=== PATIENT | male | born 1975 ===

== ENCOUNTER 2017-10-24 15:39 | Emergency (ER) | payer OTHER ==
[2017-10-24 15:53] VITALS: BP 138/80; PULSE 68; RESP 20; TEMP 98.5; O2SAT 99
[2017-10-24] MEDS ORDERED: Sodium Chloride 0.9% 1,000 ML IV STA (16:40)
[2017-10-24] MEDS ORDERED: Iohexol 240 (50 ml) PO ONE (16:40)
--- NOTE | 2017-10-24 16:44 | ED PDOC ---
HPI: Abdomen Time Seen by Provider: 10/24/17 15:50 Chief Complaint (Nursing): Abdominal Pain Chief Complaint (Provider): Abd pain History Per: Patient History/Exam Limitations: no limitations Onset/Duration Of Symptoms: Days (2 weeks) Outside of [place] travel?: No Additional Complaint(s): Pt. with 2 weeks left lower abd pain. Black stool for 2 weeks that turned into red blood for 3 days. No nausea, vomit. No chest pain, dyspnea. Takes aleeve 2x a week for tendinitis. No alcohol. Has weakness all over mild. No dizziness, headaches. Past Medical History Reviewed: Nursing Documentation, Vital Signs Vital Signs: Last Vital Signs Temp 98.5 F 10/24/17 15:50 Pulse 68 10/24/17 15:50 Resp 20 10/24/17 15:50 BP 138/80 10/24/17 15:50 Pulse Ox 99 10/24/17 16:46 - Medical History Other PMH: tendinitis - Surgical History Surgical History: No Surg Hx - Family History Family History: States: Unknown Family Hx Other Family History: colitis - Living Arrangements Living Arrangements: With Family - Home Medications Home Medications: Ambulatory Orders Medication Instructions Recorded Pantoprazole Sodium [Protonix] 40 mg PO DAILY 14 Days ect 10/24/17 - Allergies Allergies/Adverse Reactions: Allergies Allergy/AdvReac Type Severity Reaction Status Date / Time No Known Allergies Allergy Verified 10/24/17 15:49 Review of Systems ROS Statement: Except As Marked, All Systems Reviewed And Found Negative Constitutional: Positive for: Weakness Gastrointestinal: Positive for: Abdominal Pain, Melena, Hematochezia Neurological: Positive for: Weakness Physical Exam - Reviewed Nursing Documentation Reviewed: Yes Vital Signs Reviewed: Yes - Physical Exam Appears: Positive for: Non-toxic, No Acute Distress Head Exam: Positive for: ATRAUMATIC, NORMAL INSPECTION, NORMOCEPHALIC Skin: Positive for: Normal Color, Warm, DRY Eye Exam: Positive for: EOMI, Normal appearance, PERRL ENT: Positive for: Normal ENT Inspection Neck: Positive for: Normal, Painless ROM Cardiovascular/Chest: Positive for: Regular Rate, Rhythm Respiratory: Positive for: CNT, Normal Breath Sounds Gastrointestinal/Abdominal: Positive for: Soft, Tenderness (LLQ) Back: Positive for: Normal Inspection. Negative for: L CVA Tenderness, R CVA Tenderness Extremity: Positive for: Normal ROM. Negative for: Tenderness Neurologic/Psych: Positive for: Alert, Oriented - Laboratory Results Result Diagrams: 10/24/17 16:55 10/24/17 16:55 Interpretation Of Abn Labs: occult blood pos - ECG O2 Sat by Pulse Oximetry: 99 Pulse Ox Interpretation: Normal - CT Scan/US ct Other Rad Studies (CT/US): Read By Radiologist Other Rad Interpretation: no acute - Progress ED Course And Treament: 2114: Pt. stable. AAOx3. Pain free. Tolerated po. No hg changes. No ct findings. Pt. to fu with gi. Disposition - Clinical Impression Clinical Impression: Abdominal pain, Bloody stool - Patient ED Disposition Is Patient to be Admitted: No Counseled Patient/Family Regarding: Studies Performed, Diagnosis, Need For Followup - Disposition Referrals: [facility] [Outside] - 10/25/17 Virgen Marroquin MD [Medical Doctor] - 10/25/17 Disposition: Routine/Home Disposition Time: 21:18 Condition: STABLE Additional Instructions: Return if not better in 3 days. Prescriptions: Pantoprazole Sodium [Protonix] 40 mg PO DAILY 14 Days ect Instructions: Acute Abdomen (Belly Pain), Adult (DC), Bloody Stools, Adult (DC) Forms: [employer] ([employer]), [facility] ED School/Work Excuse
[2017-10-24] MEDS ORDERED: Iohexol 240 (50 ml) ONE (17:01)
[2017-10-24 17:06] LABS: BASO % 0.6 % (0.0-2.0); EOS # 0.3 K/uL (0.0-0.7); EOS % 3.5 % (0.0-4.0); HEMOGLOBIN 14.3 g/dL (12.0-18.0); LYMPH # 1.4 K/uL (1.0-4.3); MEAN CELL VOLUME 85.4 fl (80.0-94.0); MEAN CORPUSCULAR HEMOGLOBIN 28.7 pg (27.0-31.0); MEAN CORPUSCULAR HGB CONC 33.7 g/dL (33.0-37.0); MEAN PLATELET VOLUME 8.4 fl (7.2-11.7); MONO # 0.8 K/uL (0.0-0.8); MONO % 9.6 % (0.0-10.0); NEUT # 5.5 K/uL (1.8-7.0); NEUT % 69.3 % (50.0-75.0); RBC 4.97 Mil/uL (4.40-5.90); RED CELL DISTRIBUTION WIDTH 13.4 % (11.5-14.5)
[2017-10-24 17:31] LABS: ALB/GLOB RATIO 1.1 (1.0-2.1); ALBUMIN 3.9 g/dL (3.5-5.0); ALT/SGPT 64 U/L (21-72); AST/SGOT 33 U/L (17-59); BLOOD UREA NITROGEN 19 mg/dl (9-20); CALCIUM 9.3 mg/dL (8.4-10.2); GFR AFRICAN-AMERICAN > 60; GFR NON-AFRICAN AMERICAN > 60; LIPASE 120 U/L (23-300)
[2017-10-24 17:51] LABS: INR 1.1 (0.9-1.2); PARTIAL THROMBOPLASTIN TIME 29.4 Seconds (25.6-37.1); PROTHROMBIN TIME 11.8 Seconds (9.8-13.1)
[2017-10-24] MEDS ORDERED: Iohexol 300 100 ML IJ ONE (19:08)
[2017-10-24] MEDS ORDERED: Sodium Chloride 0.9% 100 ML ONE (19:09)
--- NOTE | 2017-10-25 10:16 | CT ---
PROCEDURE: CT Abdomen and Pelvis with contrast HISTORY: abd pain COMPARISON: None. TECHNIQUE: Following oral and intravenous contrast administration, a CT examination of the abdomen and pelvis performed from the domes of the diaphragms to the symphysis pubis with reformatted datasets provided not only axial but also sagittal and coronal series. Contrast dose: Omnipaque 300, 5 cc Radiation dose: Total exam DLP = 772.67 mGy-cm. This CT exam was performed using one or more of the following dose reduction techniques: Automated exposure control, adjustment of the mA and/or kV according to patient size, and/or use of iterative reconstruction technique. FINDINGS: LOWER THORAX: Unremarkable. LIVER: Unremarkable. No gross lesion or ductal dilatation. GALLBLADDER AND BILE DUCTS: Unremarkable. PANCREAS: Unremarkable. No gross lesion or ductal dilatation. SPLEEN: Unremarkable. ADRENALS: Unremarkable. No mass. KIDNEYS AND URETERS: Unremarkable. No hydronephrosis. No solid mass. VASCULATURE: Unremarkable. No aortic aneurysm. BOWEL: Stomach is decompressed and is poorly evaluated. Limited left colonic diverticula without acute inflammatory changes. No obstruction. No gross mural thickening. APPENDIX: Normal appendix. PERITONEUM: Unremarkable. No free fluid. No free air. LYMPH NODES: Unremarkable. No enlarged lymph nodes. BLADDER: Unremarkable. REPRODUCTIVE: Unremarkable. BONES: No acute fracture. OTHER FINDINGS: None. IMPRESSION: Occasional left colonic diverticular are identified. No acute diverticulitis pattern. The greater the examination appears unremarkable. Concordant preliminary report from [facility], 10/24/2017.
== END 2017-10-24 21:19 | disposition home or self-care (01) ==
LOC: H.ER 15:39
DX: R10.32 Left lower quadrant pain (principal); R19.5 Other fecal abnormalities
CPT/HCPCS: 74177; 80053; 83690; 85025; 85610; 85730; 96374; 99282; G0328; J7030; Q9966; Q9967